=== PATIENT | male | born 2000 | race Hispanic/Latino ===

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

== ENCOUNTER 2025-10-07 01:18 | Emergency (ER) | payer SELFPAY ==
[~2025-10-07] VITALS: Ht 177.8 cm; Wt 74.8 kg
[2025-10-07 02:04] LABS: RAPID GROUP A STREP negative (NEGATIVE)
[2025-10-07 02:14] LABS: INFLUENZA TYPE B Negative For Type B (NEGATIVE)
[2025-10-07 02:16] LABS: INFLUENZA TYPE A Positive For Type A (NEGATIVE)
[2025-10-07] MEDS ORDERED: OSEL75 PO (02:28)
--- NOTE | 2025-10-07 02:29 | ERN ---
General Chief Complaint: Sore Throat Stated Complaint: SORE THROAT, COUGH Time Seen by MD: 01:37 History of Present Illness Initial Comments 25-year-old male, otherwise healthy, who presents for sore throat. He reports it began earlier tonight. Mother was concerned with the patient had blisters in his throat, but none are absorbable here. He has no rashes. No vomiting. No headache fevers or body aches. No cough or congestion. Allergies: Coded Allergies: No Known Allergies (Unverified Allergy, Unknown, 10/07/25) Past Medical History Past Medical History: No Pertinent History Past Surgical History: None ROS Dictation CONSTITUTIONAL: No chills, no fever, no weakness, no diaphoresis, no malaise. HEAD/FACE: No signs of trauma. EENT: Sore throat RESPIRATORY: No cough, no orthopnea, no SOB, no stridor, no wheezing. CARDIOVASCULAR: No chest pain, no edema, no palpitations, no syncope. GASTROINTESTINAL/ABDOMINAL: No abdominal pain, no constipation, no diarrhea, no nausea, no vomiting. GENITOURINARY: No abnormal discharge, no dysuria, no frequent urination, no hematuria. No complaints of pain in the genitals. MUSCULOSKELETAL: No back pain, no gout, no joint pain, no joint swelling, no muscle pain, no muscle stiffness, no neck pain. INTEGUMENTARY: No change in color, no change in hair/nails, no dryness, no lesion, no lumps, no rash. NEUROLOGICAL/PSYCH: No anxiety, not depressed, no emotional problem, no heada mignon, no numbness, no pre-existing deficit, no history of seizures, no tremors, no weakness. HEMATOLOGIC/LYMPHATIC: Not anemic, no history of blood clots, no apparent bleeding, no bruising, glands not swollen. All Systems Negative, Except as Noted. Physical Exam Physical Exam Dictation VITAL SIGNS: Reviewed. GENERAL APPEARANCE: Alert, oriented x3, no acute distress. HEAD AND FACE: Non-traumatic. EYES: PERRL, pink conjunctivas, eyelid no trauma, anterior chamber clear. EARS: Pinnas intact and no signs of trauma or erythema. Ear canals clear and no discharge. TMs no erythema. NOSE: No discharge, no bleeding. OROPHARYNX: Mouth normal, teeth no caries, tongue pink. Pharynx clear, no erythema. Tonsils no exudates, no abscesses noted. Mucous membrane moist. NECK: Supple, non-tender, no thyromegaly, no masses, no JVD, no bruits. BREAST: Deferred. CHEST: No tenderness, no crepitus, no paradoxical movement, no retractions. LUNGS: Clear, well-ventilated, symmetric, no rales, no wheezing, no rhonchi, no stridor, good breath sounds bilaterally. HEART: Regular rate, regular rhythm, no murmur, no gallops. VASCULAR: No peripheral edema. ABDOMEN: Soft, positive bowel sounds, nondistended, no guarding, nontender, no rebound, no masses no hepatomegaly, no splenomegaly, no Rocha's sign, no hernias. RECTAL: Deferred. GENITAL: Deferred. NEUROLOGICAL: Normal speech, gross motor function intact, gross sensory function intact. MUSCULOSKELETAL: Neck nontender, full range of motion, back nontender, full range of motion. EXTREMITIES: Nontender, full range of motion. SKIN: Color pink, dry, no turgor, no rash, no lacerations, no abrasions, no contusions. LYMPHATICS: Deferred. Results Laboratory and Microbiology Lab and Micro Result Laboratory Tests Test 10/07/25 01:43 Influenza Type A Antigen Positive For Type A Influenza Type B Antigen Negative For Type B Group A Streptococcus Rapid negative (NEGATIVE) MDM CC: Sore throat Historian: Patient No comorbidities No limitations Differential diagnosis: Viral pharyngitis, strep, flu, other Vital signs are stable Clinically patient is nontoxic. ENT exam is normal. Mother was concerned about blisters in the throat, we looked together and there were no obvious blisters deformities. No swelling no signs of tonsillitis. Patient is nontoxic clear lung sounds. Tested positive for influenza a, suspect an early loose syndrome. We will discharge with supportive care recommend PCP follow up. ED Course Orders Procedure Category Date Status Time Rapid (Group A Strep) LAB 10/07/25 Complete 01:38 Influenza Type A & B, LAB 10/07/25 Complete Rapid 01:38 Vital Signs Date Time Temp Pulse Resp B/P (MAP) Pulse Ox O2 Delivery O2 Flow Rate FiO2 10/07/25 01:58 97.2 54 17 108/53 98 Room Air* 0 21 10/07/25 01:19 96.4 60 20 104/58 98 Room Air DX & DISP Disposition: Discharge Departure Impression: Primary Impression: Influenza A Condition: Stable Scripts Oseltamivir Phosphate (Tamiflu) 75 Mg Cap 1 CAP PO BID for 5 Days, #10 CAP 0 Refills Prov: AKHIL MCDERMOTT DO 10/07/25 Additional Instructions: You tested positive for influenza a, or the flu. This may be causing your sore throat. I have prescribed Tamiflu, which is an antiviral medication for the flu. Take as prescribed. You can alternate Tylenol (1000 mg) and ibuprofen (800 mg) every4 hours as needed for fevers, pain, or body aches. Drink plenty of liquids. An electrolyte solution such as Gatorade has a good choice. Please follow up with the primary doctor in48 hours for re-evaluation. Return to the emergency department as needed. Referrals: SELF,REFERRAL (PCP) AKHIL MCDERMOTT DO Oct 07, 2025 02:29
[2025-10-07 02:36] VITALS: BP 112/71; PULSE 53; RESP 15; TEMP 97.2; O2SAT 97
== END 2025-10-07 02:39 | disposition home or self-care (01) ==
LOC: EDH 01:18
DX: J10.1 Influenza due to other identified influenza virus with other respiratory manifestations (principal)
CPT/HCPCS: 87804; 87880; 99283